=== PATIENT | female | born 1995 | race African-American/Black ===

== ENCOUNTER 2016-10-05 21:06 | Emergency (ER) | payer BC | END 2016-10-06 00:20 | disposition left against medical advice (07) | LOC: ER 22:59 | DX: R10.9 Unspecified abdominal pain (principal); Z53.21 Procedure and treatment not carried out due to patient leaving prior to being seen by health care provider ==

== ENCOUNTER 2017-01-11 14:57 | Emergency (ER) | payer BC, MEDICAID ==
[~2017-01-11] VITALS: Ht 167.6 cm; Wt 60.0 kg
[2017-01-11] MEDS ORDERED: LORAZEPAM 1MG TABLET PO ONE (16:15)
[2017-01-11 16:37] LABS: CHLORIDE 108 mEq/L (98-107)
[2017-01-11 16:42] LABS: CARBON DIOXIDE 25 mEq/L (21-32); ETHANOL BLOOD < 10 mg/dL
[2017-01-11 16:45] LABS: BASOPHILS % 0.6 % (0.0-2.0); EOSINOPHILS % 0.4 % (0.0-5.0); HEMATOCRIT. 38.4 % (36.0-48.0); HEMOGLOBIN. 12.5 g/dL (12.0-16.0); LYMPHOCYTES % 20.4 % (20.0-50.0); MEAN CORPUSCULAR HEMOGLOBIN 27.9 pg (28.0-32.0); MEAN CORPUSCULAR VOLUME 85.4 fL (81.0-99.0); MEAN PLATELET VOLUME 9.3 fl (7.4-10.4); NEUTROPHILS % 74.6 % (40.0-76.0); PLATELET 178 x1000/uL (130-400); RED CELL DISTRIBUTION WIDTH 13.5 % (11.6-14.6)
[2017-01-11 16:49] LABS: TROPONIN I < 0.02 ng/mL (0.00-0.04)
[2017-01-11 17:11] LABS: *AMPHETAMINES SCREEN URINE NEGATIVE (NEGATIVE); *BARBITURATES SCREEN URINE NEGATIVE (NEGATIVE); *BENZODIAZEPINES SCREEN URINE NEGATIVE (NEGATIVE); *COCAINE SCREEN URINE NEGATIVE (NEGATIVE); METHADONE URINE SCREEN NEGATIVE (NEGATIVE); OPIATES URINE SCREEN NEGATIVE (NEGATIVE); PHENCYCLIDINE URINE SCREEN NEGATIVE (NEGATIVE)
[2017-01-11 17:16] LABS: CANNABINOID URINE SCREEN PRESUMTIVE POSITIVE (NEGATIVE)
[2017-01-11 23:00] VITALS: BP 122/77
== END 2017-01-12 02:08 | disposition home or self-care (01) ==
LOC: ER 15:46
DX: F41.9 Anxiety disorder, unspecified (principal); R45.851 Suicidal ideations; R07.9 Chest pain, unspecified; R00.2 Palpitations; F17.200 Nicotine dependence, unspecified, uncomplicated; F12.10 Cannabis abuse, uncomplicated
CPT/HCPCS: 36415; 71010; 80048; 80305; 80307; 80329; 81025; 84484; 85025; 93005; 99285; G0482

== ENCOUNTER 2017-01-17 15:45 | Emergency (ER) | payer BC, MEDICAID ==
[~2017-01-17] VITALS: Ht 167.6 cm; Wt 59.0 kg
[2017-01-17 15:55] VITALS: BP 130/73
== END 2017-01-18 00:26 | disposition left against medical advice (07) ==
LOC: ER 23:58
DX: R07.9 Chest pain, unspecified (principal); Z53.21 Procedure and treatment not carried out due to patient leaving prior to being seen by health care provider
CPT/HCPCS: 93005

== ENCOUNTER 2017-03-08 15:07 | Emergency (ER) | payer BC, MEDICAID ==
[~2017-03-08] VITALS: Ht 167.6 cm; Wt 59.0 kg
[2017-03-08 15:13] VITALS: BP 106/69
[2017-03-08] MEDS ORDERED: ACETAMINOPHEN 325MG TABLET PO ONE (19:15)
[2017-03-08 19:34] LABS: BASOPHILS % 1.1 % (0.0-2.0); EOSINOPHILS % 3.1 % (0.0-5.0); HEMATOCRIT. 37.5 % (36.0-48.0); HEMOGLOBIN. 12.5 g/dL (12.0-16.0); LYMPHOCYTES % 41.7 % (20.0-50.0); MEAN CORPUSCULAR HEMOGLOBIN 28.4 pg (28.0-32.0); MEAN PLATELET VOLUME 9.1 fl (7.4-10.4); MONOCYTES % 6.4 % (2.0-8.0); NEUTROPHILS % 47.7 % (40.0-76.0); PLATELET 186 x1000/uL (130-400); RED BLOOD CELL COUNT 4.41 mill/uL (4.2-5.4); RED CELL DISTRIBUTION WIDTH 13.2 % (11.6-14.6)
[2017-03-08 19:40] LABS: CHLORIDE 106 mEq/L (98-107)
[2017-03-08 19:44] LABS: HCG SCREEN NEGATIVE
[2017-03-08 19:46] LABS: CARBON DIOXIDE 28 mEq/L (21-32)
[2017-03-08 20:24] LABS: CLARITY URINE CLEAR (CLEAR); COLOR URINE YELLOW (YELLOW); GLUCOSE URINE NEGATIVE (NEGATIVE); KETONES URINE NEGATIVE (NEGATIVE); LEUKOCYTE ESTERASE URINE NEGATIVE (NEGATIVE); NITRITE URINE NEGATIVE (NEGATIVE); OCCULT BLOOD URINE NEGATIVE (NEGATIVE); PH URINE 6.5 (4.5-8.0); PROTEIN URINE NEGATIVE (NEGATIVE); SPECIFIC GRAVITY URINE 1.021 (1.005-1.030)
== END 2017-03-08 21:37 | disposition home or self-care (01) ==
LOC: ER 15:07
DX: N93.9 Abnormal uterine and vaginal bleeding, unspecified (principal); R11.0 Nausea; F17.200 Nicotine dependence, unspecified, uncomplicated; F12.10 Cannabis abuse, uncomplicated
CPT/HCPCS: 36415; 76830; 76856; 80048; 81003; 84703; 85025; 99285; J7030; Z7610

== ENCOUNTER 2017-09-22 17:33 | Emergency (ER) | payer BC, MEDICAID ==
[~2017-09-22] VITALS: Ht 167.6 cm; Wt 55.0 kg
[2017-09-22 17:42] VITALS: BP 115/78
== END 2017-09-23 04:50 | disposition left against medical advice (07) ==
LOC: ER 17:43
DX: H57.12 Ocular pain, left eye (principal); F17.200 Nicotine dependence, unspecified, uncomplicated
CPT/HCPCS: 81025; 99281; 99282

== ENCOUNTER 2018-12-29 18:19 | Emergency (ER) | payer BC, MEDICAID, OTHER ==
[~2018-12-29] VITALS: Ht 167.6 cm; Wt 55.2 kg
[2018-12-29 18:44] VITALS: BP 111/66
[2018-12-29 19:50] LABS: CLARITY URINE CLEAR (CLEAR); COLOR URINE YELLOW (YELLOW); KETONES URINE TRACE (NEGATIVE); LEUKOCYTE ESTERASE URINE NEGATIVE (NEGATIVE); NITRITE URINE NEGATIVE (NEGATIVE); OCCULT BLOOD URINE NEGATIVE (NEGATIVE); PH URINE 5.5 (4.5-8.0); PROTEIN URINE NEGATIVE (NEGATIVE); SPECIFIC GRAVITY URINE 1.033 (1.005-1.030)
== END 2018-12-29 19:30 | disposition left against medical advice (07) ==
LOC: ER 18:19
DX: O26.891 Other specified pregnancy related conditions, first trimester (principal); R10.9 Unspecified abdominal pain; Z53.21 Procedure and treatment not carried out due to patient leaving prior to being seen by health care provider; Z3A.00 Weeks of gestation of pregnancy not specified
CPT/HCPCS: 81025